=== PATIENT | female | born 1985 | race Caucasian/White ===

== ENCOUNTER 2016-10-18 19:46 | Emergency (ER) | payer MEDICARE ==
[~2016-10-18 19:46] MED LIST: IBUPROFEN800 MG PO
== END 2016-10-19 02:17 | disposition left against medical advice (07) ==
LOC: ER1 19:46
DX: Z53.21 Procedure and treatment not carried out due to patient leaving prior to being seen by health care provider (principal)

== ENCOUNTER 2017-01-18 12:29 | Emergency (ER) | payer MEDICARE | END 2017-01-18 14:13 | disposition home or self-care (01) | LOC: ER1 12:29 | DX: R60.0 Localized edema (principal) | CPT/HCPCS: 93971; 99283 ==

== ENCOUNTER 2017-01-22 15:16 | Emergency (ER) | payer MEDICARE ==
[2017-01-22 16:52] LABS: HEMOGLOBIN 14.8 gm/dl (12.3-15.3); RED BLOOD COUNT 5.05 M/UL (4.00-5.10); WHITE BLOOD COUNT 8.2 K/UL (4.5-11.0)
[2017-01-22 17:13] LABS: BUN/CREATININE RATIO 20 (0-10)
== END 2017-01-22 20:45 | disposition home or self-care (01) ==
LOC: ER1 15:16
PROVIDERS: Emergency Medicine
DX: R07.89 Other chest pain (principal)
CPT/HCPCS: 36415; 71010; 80053; 81001; 82550; 82553; 83874; 84484; 84703; 85025; 85379; 93005; 99285; J7050; Q9963

== ENCOUNTER → 2020-08-28 | Day surgery (SDC) | payer OTHER ==
[~2020-08-28] MED LIST changes: +HYDROCODON-ACE1 EAC4 PO; +IBUPROFEN600 MG PO; +PREVACID30 MG PO; +TORADOL 10 MG T10 MG PO; +TYLENOL 500 MG500 MG PO; +ZOFRAN 4 MG TAB4 MG PO
== END | disposition home or self-care (01) ==
LOC: OR 06:36
DX: K80.64 Calculus of gallbladder and bile duct with chronic cholecystitis without obstruction (principal); K21.9 Gastro-esophageal reflux disease without esophagitis; K92.1 Melena; K59.09 Other constipation; F41.9 Anxiety disorder, unspecified; F32.9 Major depressive disorder, single episode, unspecified; E55.9 Vitamin D deficiency, unspecified; E66.01 Morbid (severe) obesity due to excess calories; R91.1 Solitary pulmonary nodule; Z79.899 Other long term (current) drug therapy; Z87.09 Personal history of other diseases of the respiratory system; Z87.891 Personal history of nicotine dependence
CPT/HCPCS: 84703; J0690; J1100; J1170; J1885; J2001; J2250; J2370; J2405; J2704; J2710; J2765; J3010; J7030; J7120

== ENCOUNTER 2021-11-12 16:35 | Emergency (ER) | payer SELFPAY ==
[2021-11-12 19:18] LABS: HEMOGLOBIN 13.2 gm/dl (12.3-15.3); RED BLOOD COUNT 4.47 M/UL (4.00-5.10); WHITE BLOOD COUNT 7.8 K/UL (4.5-11.0)
== END 2021-11-12 20:10 | disposition home or self-care (01) ==
LOC: ER1 16:35
PROVIDERS: Physician Assistant
DX: S70.11XA Contusion of right thigh, initial encounter (principal); F17.210 Nicotine dependence, cigarettes, uncomplicated; W22.8XXA Striking against or struck by other objects, initial encounter; Y99.0 Civilian activity done for income or pay
CPT/HCPCS: 73564; 85025; 85379; 85610; 85730; 99283